=== PATIENT | female | born 2005 | race Caucasian/White ===

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

== ENCOUNTER 2024-03-26 06:35 | Emergency (ER) | payer OTHER ==
[~2024-03-26] VITALS: Ht 165.1 cm; Wt 117.5 kg
[~2024-03-26 06:35] MED LIST: ONDA-188 SL
[2024-03-26 06:42] VITALS: BP 120/84; PULSE 74; RESP 16; TEMP 97.2; O2SAT 100
[2024-03-26] MEDS: ACETAMINOPHEN EXTRA STRENGTH 500 MG TAB PO ONE (08:09)
[2024-03-26] MEDS: KETOROLAC 30 MG/ML VIAL IM ONE (08:09)
[2024-03-26] MEDS: LIDOCAINE 5% 1 EA PATCH TP ONE (08:10)
[2024-03-26] MEDS ORDERED: LID5T TP (09:25)
[2024-03-26] MEDS ORDERED: IBUP-2213 PO (09:25)
[2024-03-26 09:33] VITALS: BP 120/76; PULSE 78; RESP 11; TEMP 97.2; O2SAT 100
== END 2024-03-26 09:33 | disposition home or self-care (01) ==
LOC: MED 06:35
DX: S29.011A Strain of muscle and tendon of front wall of thorax, initial encounter (principal); S16.1XXA Strain of muscle, fascia and tendon at neck level, initial encounter; Z79.1 Long term (current) use of non-steroidal anti-inflammatories (NSAID); Z79.899 Other long term (current) drug therapy; X58.XXXA Exposure to other specified factors, initial encounter; Y93.89 Activity, other specified; Y92.89 Other specified places as the place of occurrence of the external cause; Y99.8 Other external cause status
CPT/HCPCS: 71045; 81025; 93005; 96372; 99283; J1885